=== PATIENT | female | born 1935 | race African-American/Black ===

== ENCOUNTER 2017-06-20 18:38 | Inpatient (IN) | payer OTHER, MEDICARE ==
[~2017-06-20] VITALS: Ht 157.5 cm; Wt 73.0 kg
[~2017-06-20 18:38] MED LIST: ASPI-1063 PO; ESCI10TA PO; GLIP10TA11 PO; LOSA1TAB15 PO; METO-442 PO; SIMV40TA2 PO; SITA1TAB10 PO
[2017-06-20 18:40] VITALS: BP_SYST 126
[2017-06-20] MEDS ORDERED: PRAV20TA PO (19:23)
[2017-06-20] MEDS ORDERED: CHOL200010 PO (19:23)
[2017-06-20] MEDS ORDERED: CYAN250014 PO (19:23)
[2017-06-20] MEDS ORDERED: BIMA2.5D5 OP (19:23)
[2017-06-20] MEDS ORDERED: LANS30CA56 PO (19:23)
[2017-06-20] MEDS ORDERED: AMLO5TAB4 PO (19:23)
[2017-06-20] MEDS ORDERED: ESOM2.5S PO (19:28)
[2017-06-20 19:38] LABS: EOSINOPHILS # (AUTO) 0.3 K/uL (0.0-0.4)
[2017-06-20 19:42] LABS: BASOPHILS # (AUTO) 0.2 K/uL (0.0-0.2); HEMOGLOBIN 11.3 g/dL (12.0-16.0); LYMPHOCYTES # (AUTO) 2.3 K/uL (1.0-5.5); MEAN CORPUSCULAR HEMOGLOBIN 29 pg (27-31); NEUTROPHILS # (AUTO) 4.8 K/uL (1.8-7.7)
[2017-06-20 19:46] LABS: ANION GAP 10 (5-15); BASOPHILS % (AUTO) 2.6 % (0.0-2.0); CALCIUM 9.2 mg/dL (8.4-11.0); CHLORIDE 104 mmol/L (98-107); CREATININE 1.54 mg/dL (0.55-1.30); EOSINOPHILS % (AUTO) 3.6 % (0.0-4.0); GLUCOSE 241 mg/dL (70-99); HEMATOCRIT 33.7 % (36-48); LYMPHOCYTES % (AUTO) 28.2 % (20.5-51.5); MEAN CORPUSCULAR HGB CONC 33 % (32-36); MEAN CORPUSCULAR VOLUME 87 fL (79.0-98.0); MONOCYTES # (AUTO) 0.4 K/uL (0.0-1.0); MONOCYTES % (AUTO) 5.1 % (1.7-9.3); NEUTROPHILS % (AUTO) 60.5 % (40.0-70.0); PLATELET COUNT (AUTO) 235 K/uL (130-430); POTASSIUM 4.6 mmol/L (3.5-5.1); RED BLOOD CELL COUNT(AUTO) 3.89 MIL/uL (4.2-6.2); RED CELL DISTRIBUTION WIDTH 14.7 % (9.0-15.0); SODIUM SERUM 139 mmol/L (136-145); UREA NITROGEN, BLOOD 26 mg/dL (8-21)
[2017-06-20 19:54] LABS: ALANINE AMINOTRANSFERASE 20 U/L (12-78); ALBUMIN 3.3 g/dL (3.4-4.8); ASPARTATE AMINOTRANSFERASE 25 U/L (10-37); TOTAL BILIRUBIN 0.3 mg/dL (0.0-1.0)
[2017-06-20 23:02] VITALS: BP_SYST 155
[2017-06-20] MEDS ORDERED: NORMAL SALINE 5 ML DISP.SYRIN IVF SCH (23:15)
[2017-06-20] MEDS ORDERED: MORPHINE 2 MG/ML INJ. SYRINGE IVP PRN (23:45)
[2017-06-20] MEDS ORDERED: ONDANSETRON HCL 4 MG/2 ML VIAL IVP PRN (23:45)
[2017-06-21] VITALS: BP_SYST 155
[2017-06-21] MEDS: NACL 0.9% 1,000 ML IV SCH ×2 (00:18→17:13)
[2017-06-21 00:52] LABS: BILIRUBIN,URINE NEGATIVE (NEGATIVE); BLOOD, URINE NEGATIVE (NEGATIVE); CLARITY/URINE CLEAR (CLEAR); COLOR,URINE YELLOW (YELLOW); GLUCOSE,URINE NEGATIVE (NEGATIVE); KETONES,URINE NEGATIVE (NEGATIVE); LEUKOCYTE ESTERASE ,URINE NEGATIVE (NEGATIVE); NITRITE, URINE NEGATIVE (NEGATIVE); PROTEIN URINE NEGATIVE (NEGATIVE); UROBILINOGEN,URINE 0.2 (0.2-1.0)
[2017-06-21 01:30] LABS: FREE T4 (FREE THYROXINE) 0.8 ng/dL (0.6-1.6); PHOSPHORUS 3.6 mg/dL (2.7-4.5); THYROID STIMULATING HORMONE 0.83 uIu/mL (0.34-4.82)
[2017-06-21 06:43] VITALS: BP_SYST 136
[2017-06-21 08:42] VITALS: BP_SYST 159
[2017-06-21] MEDS: DOCUSATE SODIUM 100 MG CAPSULE PO SCH ×2 (08:49→20:27)
[2017-06-21] MEDS: INSULIN REGULAR, HUMAN 100 UNITS/ML, 10 ML VIAL (novoLIN R) SUBCUT PRN ×2 (11:42→20:30)
[2017-06-21 12:36] VITALS: BP_SYST 162
[2017-06-21] MEDS ORDERED: hydrALAZINE HCL 20 MG/ML VIAL IVP PRN (13:00)
[2017-06-21 16:18] VITALS: BP_SYST 138
[2017-06-21] MEDS: ACETAMINOPHEN 325 MG TABLET PO PRN (17:06)
[2017-06-21] MEDS: SIMVASTATIN 10 MG TABLET PO SCH (18:31)
[2017-06-21 19:50] VITALS: BP_SYST 180
[2017-06-21] MEDS: LATANOPROST 2.5 ML DROPS (XALATAN) OP SCH (20:27)
[2017-06-21] MEDS: METOPROLOL TARTRATE 50 MG TABLET PO SCH (20:29)
[2017-06-21] MEDS ORDERED: MILK OF MAGNESIA 30 ML UDC PO PRN (21:00)
[2017-06-21] MEDS ORDERED: MILK OF MAGNESIA 30 ML UDC PO ONE (21:00)
[2017-06-21] MEDS ORDERED: SIMVASTATIN 20 MG TABLET PO SCH (21:00)
[2017-06-21] MEDS ORDERED: METOPROLOL TARTRATE 25 MG TABLET PO SCH (21:00)
[2017-06-22 00:53] VITALS: BP_SYST 148
[2017-06-22 03:58] VITALS: BP_SYST 144
[2017-06-22] MEDS: INSULIN REGULAR, HUMAN 100 UNITS/ML, 10 ML VIAL (novoLIN R) SUBCUT PRN ×4 (05:43→21:38)
[2017-06-22] MEDS: NACL 0.9% 1,000 ML IV SCH (05:45)
[2017-06-22 08:00] VITALS: BP_SYST 124
[2017-06-22] MEDS: METOPROLOL TARTRATE 50 MG TABLET PO SCH ×3 (09:00→21:36)
[2017-06-22] MEDS ORDERED: LOSARTAN/HYDROCHLOROTHIAZIDE TAB (HYZAAR 50-12.5 MG) PO SCH (09:00)
[2017-06-22] MEDS ORDERED: LISINOPRIL 10 MG TABLET (PRINIVIL) PO SCH (09:00)
[2017-06-22] MEDS: ASPIRIN 81 MG TAB.CHEW PO SCH (09:47)
[2017-06-22] MEDS: DOCUSATE SODIUM 100 MG CAPSULE PO SCH ×2 (09:47→21:35)
[2017-06-22] MEDS: LOSARTAN POTASSIUM 50 MG TABLET (COZAAR) PO SCH (09:48)
[2017-06-22] MEDS: HYDROCHLOROTHIAZIDE 25 MG TABLET (HCTZ) PO SCH (09:48)
[2017-06-22 10:17] LABS: T4 (THYROXINE) 7.9 ug/dL (4.5-12.0)
[2017-06-22 12:30] VITALS: BP_SYST 134
[2017-06-22 16:05] VITALS: BP_SYST 139
[2017-06-22] MEDS: SIMVASTATIN 10 MG TABLET PO SCH (17:32)
[2017-06-22 20:08] VITALS: BP_SYST 148
[2017-06-22] MEDS: ACETAMINOPHEN 325 MG TABLET PO PRN (20:17)
[2017-06-22] MEDS: LATANOPROST 2.5 ML DROPS (XALATAN) OP SCH (21:36)
[2017-06-23] MEDS: NACL 0.9% 1,000 ML IV SCH (00:24)
[2017-06-23 00:57] VITALS: BP_SYST 135
[2017-06-23 04:31] VITALS: BP_SYST 136
[2017-06-23] MEDS: INSULIN REGULAR, HUMAN 100 UNITS/ML, 10 ML VIAL (novoLIN R) SUBCUT PRN ×2 (06:04→12:17)
[2017-06-23 07:52] LABS: BASOPHILS % (AUTO) 0.5 % (0.0-2.0); EOSINOPHILS # (AUTO) 0.4 K/uL (0.0-0.4); EOSINOPHILS % (AUTO) 5.5 % (0.0-4.0); HEMATOCRIT 37.1 % (36-48); HEMOGLOBIN 12.2 g/dL (12.0-16.0); LYMPHOCYTES # (AUTO) 1.5 K/uL (1.0-5.5); LYMPHOCYTES % (AUTO) 21.4 % (20.5-51.5); MEAN CORPUSCULAR HEMOGLOBIN 29 pg (27-31); MEAN CORPUSCULAR HGB CONC 33 % (32-36); MEAN CORPUSCULAR VOLUME 87 fL (79.0-98.0); MONOCYTES # (AUTO) 0.6 K/uL (0.0-1.0); MONOCYTES % (AUTO) 8.4 % (1.7-9.3); NEUTROPHILS # (AUTO) 4.4 K/uL (1.8-7.7); NEUTROPHILS % (AUTO) 64.2 % (40.0-70.0); PLATELET COUNT (AUTO) 246 K/uL (130-430); RED BLOOD CELL COUNT(AUTO) 4.28 MIL/uL (4.2-6.2); RED CELL DISTRIBUTION WIDTH 14.6 % (9.0-15.0); WHITE BLOOD COUNT (AUTO) 6.9 K/uL (4.8-10.8)
[2017-06-23 08:04] LABS: ANION GAP 8 (5-15); CALCIUM 9.5 mg/dL (8.4-11.0); CHLORIDE 106 mmol/L (98-107); CREATININE 1.01 mg/dL (0.55-1.30); GLUCOSE 187 mg/dL (70-99); SODIUM SERUM 141 mmol/L (136-145); UREA NITROGEN, BLOOD 16 mg/dL (8-21)
[2017-06-23 08:05] VITALS: BP_SYST 148
[2017-06-23 08:11] LABS: ALANINE AMINOTRANSFERASE 26 U/L (12-78); ALBUMIN 3.2 g/dL (3.4-4.8); ASPARTATE AMINOTRANSFERASE 18 U/L (10-37); TOTAL BILIRUBIN 0.3 mg/dL (0.0-1.0)
[2017-06-23] MEDS ORDERED: METOPROLOL TARTRATE 50 MG TABLET PO SCH (09:00)
[2017-06-23] MEDS: HYDROCHLOROTHIAZIDE 25 MG TABLET (HCTZ) PO SCH (09:05)
[2017-06-23] MEDS: LOSARTAN POTASSIUM 50 MG TABLET (COZAAR) PO SCH (09:05)
[2017-06-23] MEDS: DOCUSATE SODIUM 100 MG CAPSULE PO SCH (09:07)
[2017-06-23] MEDS: ASPIRIN 81 MG TAB.CHEW PO SCH (09:07)
[2017-06-23] MEDS ORDERED: METO-442 PO (10:00)
[2017-06-23 10:30] VITALS: BP_SYST 148
[2017-06-23 12:56] VITALS: BP_SYST 140
[2017-06-24 15:27] LABS: HEMOGLOBIN A1C 7.8 % (4.8-5.6)
== END 2017-06-23 14:42 | disposition home or self-care (01) | DRG 392 ==
LOC: SED 18:38 → STU 22:43
PROVIDERS: ADMIT Family Medicine; ATTEND Family Medicine
DX: K21.9 Gastro-esophageal reflux disease without esophagitis (principal); E44.0 Moderate protein-calorie malnutrition; E11.9 Type 2 diabetes mellitus without complications; M62.81 Muscle weakness (generalized); R00.1 Bradycardia, unspecified; G90.9 Disorder of the autonomic nervous system, unspecified; I10 Essential (primary) hypertension; E78.5 Hyperlipidemia, unspecified; I51.7 Cardiomegaly; I95.1 Orthostatic hypotension; H40.9 Unspecified glaucoma; Z96.653 Presence of artificial knee joint, bilateral; M19.90 Unspecified osteoarthritis, unspecified site; Z79.899 Other long term (current) drug therapy; Z88.5 Allergy status to narcotic agent; Z98.42 Cataract extraction status, left eye; Z98.41 Cataract extraction status, right eye; Z79.82 Long term (current) use of aspirin; Z68.29 Body mass index [BMI] 29.0-29.9, adult
CPT/HCPCS: 36415; 70450-TC; 71010; 80053; 80061; 81003; 82150-TC; 82962; 83036; 83690-TC; 83735-TC; 83880; 84100-TC; 84436; 84439; 84443-TC; 84479; 84484; 85025; 93005; 93306; 99285; J1815; J7030

== ENCOUNTER 2017-09-19 09:42 | Day surgery (SDC) | payer OTHER, MEDICARE ==
[2017-09-17 14:29] LABS: ANION GAP 11 (5-15); BASOPHILS # (AUTO) 0.1 K/uL (0.0-0.2); BASOPHILS % (AUTO) 1.2 % (0.0-2.0); CALCIUM 10.3 mg/dL (8.4-11.0); CHLORIDE 101 mmol/L (98-107); CREATININE 1.15 mg/dL (0.55-1.30); EOSINOPHILS # (AUTO) 0.3 K/uL (0.0-0.4); GLUCOSE 173 mg/dL (70-99); HEMATOCRIT 40.3 % (36-48); HEMOGLOBIN 12.8 g/dL (12.0-16.0); LYMPHOCYTES # (AUTO) 2.4 K/uL (1.0-5.5); LYMPHOCYTES % (AUTO) 34.1 % (20.5-51.5); MEAN CORPUSCULAR HEMOGLOBIN 28 pg (27-31); MEAN CORPUSCULAR HGB CONC 32 % (32-36); MEAN CORPUSCULAR VOLUME 87 fL (79.0-98.0); MONOCYTES # (AUTO) 0.4 K/uL (0.0-1.0); MONOCYTES % (AUTO) 5.5 % (1.7-9.3); NEUTROPHILS % (AUTO) 55.2 % (40.0-70.0); PLATELET COUNT (AUTO) 334 K/uL (130-430); POTASSIUM 4.7 mmol/L (3.5-5.1); RED BLOOD CELL COUNT(AUTO) 4.66 MIL/uL (4.2-6.2); RED CELL DISTRIBUTION WIDTH 14.8 % (9.0-15.0); SODIUM SERUM 139 mmol/L (136-145); UREA NITROGEN, BLOOD 17 mg/dL (8-21); WHITE BLOOD COUNT (AUTO) 7.2 K/uL (4.8-10.8)
[~2017-09-19] VITALS: Ht 157.5 cm; Wt 70.8 kg
[~2017-09-19 09:42] MED LIST changes: +AMLO5TAB4 PO; +BIMA2.5D5 OP; +CHOL200010 PO; +CYAN250014 PO; -ESCI10TA PO; +ESOM2.5S PO; +PRAV20TA PO; -SIMV40TA2 PO
[2017-09-19] MEDS ORDERED: CEFAZOLIN 2 GM IVPB PREMIX 50 ML IV ONE (09:53)
[2017-09-19 10:05] LABS: BILIRUBIN,URINE NEGATIVE (NEGATIVE); BLOOD, URINE NEGATIVE (NEGATIVE); CLARITY/URINE CLEAR (CLEAR); COLOR,URINE YELLOW (YELLOW); GLUCOSE,URINE NEGATIVE (NEGATIVE); KETONES,URINE NEGATIVE (NEGATIVE); LEUKOCYTE ESTERASE ,URINE NEGATIVE (NEGATIVE); NITRITE, URINE NEGATIVE (NEGATIVE); PROTEIN URINE NEGATIVE (NEGATIVE); UROBILINOGEN,URINE 0.2 (0.2-1.0)
[2017-09-19] MEDS ORDERED: SEVOFLURANE 15 MIN GAS INH ONE (11:50)
[2017-09-19] MEDS ORDERED: KETOROLAC TROMETHAMINE 30 MG VIAL IVP ONE (11:50)
[2017-09-19] MEDS ORDERED: LIDOCAINE 1% 10 MG/ML, 20 ML MDV INJ ONE (11:50)
[2017-09-19] MEDS ORDERED: DEXAMETHASONE SOD PHOSPHATE 4 MG/ML VIAL IVP ONE (11:50)
[2017-09-19] MEDS ORDERED: ONDANSETRON HCL 4 MG/2 ML VIAL IVP ONE ×2 (11:50→12:45)
[2017-09-19] MEDS ORDERED: fentaNYL CITRATE/PF 100 MCG/2 ML AMP IVP ONE (11:50)
[2017-09-19] MEDS ORDERED: PROPOFOL 200MG/ 20ML VIAL (DIPRIVAN) IV ONE (11:50)
[2017-09-19] MEDS ORDERED: LR 1,000 ML IV.SOLN IV ONE (11:50)
[2017-09-19] MEDS ORDERED: MIDAZOLAM HCL 5 MG/5 ML VIAL IVP ONE (11:50)
[2017-09-19] MEDS ORDERED: LR 1,000 ML IV SCH (12:31)
[2017-09-19] MEDS ORDERED: traMADol HCL HCL 50 MG TABLET (ULTRAM) PO PRN (12:45)
[2017-09-19] MEDS ORDERED: NALOXONE HCL 0.4 MG/ML AMP (NARCAN) IVP ONE (12:45)
[2017-09-19] MEDS ORDERED: LABETALOL 100 MG/ 20ML VIAL IVP PRN (12:45)
[2017-09-19] MEDS ORDERED: fentaNYL CITRATE/PF 100 MCG/2 ML AMP IVP PRN (12:45)
[2017-09-19] MEDS ORDERED: KETOROLAC TROMETHAMINE 30 MG VIAL IM PRN (12:45)
[2017-09-19] MEDS ORDERED: ACETAMINOPHEN 325 MG TABLET PO ONE (12:45)
[2017-09-19] MEDS ORDERED: MIDAZOLAM HCL 5 MG/5 ML VIAL IVP PRN (12:45)
[2017-09-19] MEDS ORDERED: HYDROmorphone 1 MG INJ. 1 MG/ML AMPUL IVP PRN (12:45)
[2017-09-19] MEDS ORDERED: traMADol HCL HCL 50 MG TABLET (ULTRAM) ONE (13:20)
[2017-09-19 13:28] VITALS: BP_SYST 140
== END 2017-09-19 15:40 | disposition home or self-care (01) ==
LOC: SDS 09:42 → SMU 09:44 → SDS 15:40
PROVIDERS: ATTEND Orthopaedic Surgery
DX: S60.211A Contusion of right wrist, initial encounter (principal); V49.9XXA Car occupant (driver) (passenger) injured in unspecified traffic accident, initial encounter; Y93.9 Activity, unspecified; Y92.89 Other specified places as the place of occurrence of the external cause; Y99.9 Unspecified external cause status; I10 Essential (primary) hypertension; J45.909 Unspecified asthma, uncomplicated; K21.9 Gastro-esophageal reflux disease without esophagitis; F32.9 Major depressive disorder, single episode, unspecified; E11.9 Type 2 diabetes mellitus without complications; H40.9 Unspecified glaucoma; Z79.899 Other long term (current) drug therapy; Z98.890 Other specified postprocedural states; Z90.710 Acquired absence of both cervix and uterus; Z96.653 Presence of artificial knee joint, bilateral; Z82.49 Family history of ischemic heart disease and other diseases of the circulatory system; E78.5 Hyperlipidemia, unspecified; M19.90 Unspecified osteoarthritis, unspecified site; M81.0 Age-related osteoporosis without current pathological fracture
CPT/HCPCS: 25028; 36415; 71046; 80048; 81003; 82962; 85025; J0690; J1100; J1885; J2001; J2250; J2405; J2704; J3010; J7120

== ENCOUNTER 2017-09-20 10:24 | Emergency (ER) | payer OTHER, MEDICARE ==
[~2017-09-20] VITALS: Ht 157.5 cm; Wt 70.3 kg
[2017-09-20 10:36] VITALS: BP_SYST 169
[2017-09-20 11:38] LABS: BILIRUBIN,URINE NEGATIVE (NEGATIVE); BLOOD, URINE NEGATIVE (NEGATIVE); CLARITY/URINE CLEAR (CLEAR); COLOR,URINE YELLOW (YELLOW); GLUCOSE,URINE NEGATIVE (NEGATIVE); KETONES,URINE NEGATIVE (NEGATIVE); LEUKOCYTE ESTERASE ,URINE NEGATIVE (NEGATIVE); NITRITE, URINE NEGATIVE (NEGATIVE); PROTEIN URINE TRACE (NEGATIVE); UROBILINOGEN,URINE 0.2 (0.2-1.0)
[2017-09-20 11:42] LABS: HEMATOCRIT 42.2 % (36-48); HEMOGLOBIN 13.3 g/dL (12.0-16.0); MEAN CORPUSCULAR HEMOGLOBIN 27 pg (27-31); MEAN CORPUSCULAR HGB CONC 32 % (32-36); MEAN CORPUSCULAR VOLUME 86 fL (79.0-98.0); PLATELET COUNT (AUTO) 272 K/uL (130-430); RED BLOOD CELL COUNT(AUTO) 4.89 MIL/uL (4.2-6.2); RED CELL DISTRIBUTION WIDTH 14.8 % (9.0-15.0); WHITE BLOOD COUNT (AUTO) 11.9 K/uL (4.8-10.8)
[2017-09-20 11:45] LABS: RBC,URINE 0-3 /HPF (0-3)
[2017-09-20 11:46] LABS: BACTERIA,URINE RARE /HPF (None Seen); WBC,URINE 0-3 /HPF (0-3)
[2017-09-20 11:56] LABS: ANION GAP 12 (5-15); CALCIUM 10.9 mg/dL (8.4-11.0); CHLORIDE 97 mmol/L (98-107); CREATININE 1.04 mg/dL (0.55-1.30); GLUCOSE 231 mg/dL (70-99); POTASSIUM 4.7 mmol/L (3.5-5.1); SODIUM SERUM 135 mmol/L (136-145); UREA NITROGEN, BLOOD 22 mg/dL (8-21)
[2017-09-20 12:01] LABS: ALANINE AMINOTRANSFERASE 31 U/L (12-78); ALBUMIN 4.5 g/dL (3.4-4.8); ASPARTATE AMINOTRANSFERASE 28 U/L (10-37); TOTAL BILIRUBIN 0.3 mg/dL (0.0-1.0)
[2017-09-20 13:00] LABS: BAND % (MANUAL) 1 % (0-6); BASOPHILS % (MANUAL) 0 % (0-2); EOSINOPHILS % (MANUAL) 1 % (0-7); LYMPHOCYTES % (MANUAL) 15 % (20-46); MONOCYTES % (MANUAL) 5 % (0-11)
[2017-09-20 13:38] VITALS: BP_SYST 138
== END 2017-09-20 13:38 | disposition home or self-care (01) ==
LOC: SED 10:24
DX: E86.0 Dehydration (principal); J45.909 Unspecified asthma, uncomplicated; E11.9 Type 2 diabetes mellitus without complications; K21.9 Gastro-esophageal reflux disease without esophagitis; I10 Essential (primary) hypertension; Z90.710 Acquired absence of both cervix and uterus; Z88.5 Allergy status to narcotic agent; Z79.899 Other long term (current) drug therapy
CPT/HCPCS: 36415; 80053; 81000-TC; 84484; 85007; 85027; 93005; 99285

== ENCOUNTER 2018-07-17 08:10 | Outpatient (CLI) | payer OTHER, MEDICARE ==
[~2018-07-17 08:10] MED LIST changes: -ASPI-1063 PO; +ASPI-1154 PO; -CHOL200010 PO; +CHOL20004 PO
[2018-07-17 09:36] LABS: ALANINE AMINOTRANSFERASE 23 U/L (12-78); ALBUMIN 3.4 g/dL (3.4-4.8); ANION GAP 8 (5-15); ASPARTATE AMINOTRANSFERASE 14 U/L (10-37); CALCIUM 9.7 mg/dL (8.4-11.0); CHLORIDE 102 mmol/L (98-107); CHOLESTEROL 141 mg/dL (<200); GLUCOSE 226 mg/dL (70-99); HDL CHOLESTEROL 49 mg/dL (>55); LDL CHOLESTEROL 73 mg/dL (<100); SODIUM SERUM 137 mmol/L (136-145); TOTAL BILIRUBIN 0.3 mg/dL (0.0-1.0); TRIGLYCERIDES 113 mg/dL (30-150); UREA NITROGEN, BLOOD 22 mg/dL (8-21)
[2018-07-17 09:38] LABS: RED BLOOD CELL COUNT(AUTO) 4.39 MIL/uL (4.2-6.2); WHITE BLOOD COUNT (AUTO) 5.6 K/uL (4.8-10.8)
[2018-07-17 09:39] LABS: BASOPHILS % (AUTO) 0.6 % (0.0-2.0); EOSINOPHILS % (AUTO) 5.5 % (0.0-4.0); HEMATOCRIT 37.1 % (36-48); HEMOGLOBIN 12.1 g/dL (12.0-16.0); LYMPHOCYTES % (AUTO) 35.9 % (20.5-51.5); MEAN CORPUSCULAR HEMOGLOBIN 28 pg (27-31); MEAN CORPUSCULAR HGB CONC 33 % (32-36); MEAN CORPUSCULAR VOLUME 85 fL (79.0-98.0); MONOCYTES # (AUTO) 0.3 K/uL (0.0-1.0); MONOCYTES % (AUTO) 6.2 % (1.7-9.3); NEUTROPHILS % (AUTO) 51.8 % (40.0-70.0); PLATELET COUNT (AUTO) 258 K/uL (130-430); RED CELL DISTRIBUTION WIDTH 14.6 % (9.0-15.0)
[2018-07-17 09:40] LABS: EOSINOPHILS # (AUTO) 0.3 K/uL (0.0-0.4)
[2018-07-20 15:40] LABS: HEMOGLOBIN A1C 8.3 % (4.8-5.6)
== END 2018-07-17 18:55 | disposition home or self-care (01) ==
LOC: SLB 08:10
PROVIDERS: ATTEND Specialist
DX: E11.22 Type 2 diabetes mellitus with diabetic chronic kidney disease (principal); I12.9 Hypertensive chronic kidney disease with stage 1 through stage 4 chronic kidney disease, or unspecified chronic kidney disease; N18.3 Chronic kidney disease, stage 3 (moderate); E78.2 Mixed hyperlipidemia; E55.9 Vitamin D deficiency, unspecified; E53.8 Deficiency of other specified B group vitamins
CPT/HCPCS: 36415; 80053; 80061; 82306; 82607; 83036; 85025

== ENCOUNTER 2022-12-30 14:00 | Inpatient (IN) | payer OTHER, MEDICARE ==
[~2022-12-30] VITALS: Ht 160 cm; Wt 29.9 kg
[~2022-12-30 14:00] MED LIST changes: -ASPI-1154 PO; +ASPI-1457 PO
[2022-12-30 14:23] VITALS: BP_SYST 145
[2022-12-30 15:23] LABS: BASOPHILS # (AUTO) 0.1 K/uL (0.0-0.2); BASOPHILS % (AUTO) 1.5 % (0.0-2.0); EOSINOPHILS # (AUTO) 0.2 K/uL (0.0-0.4); EOSINOPHILS % (AUTO) 3.8 % (0.0-4.0); HEMATOCRIT 36.5 % (36-48); LYMPHOCYTES # (AUTO) 1.8 K/uL (1.0-5.5); LYMPHOCYTES % (AUTO) 30.8 % (20.5-51.5); MEAN CORPUSCULAR HEMOGLOBIN 29 pg (27-31); MEAN CORPUSCULAR HGB CONC 33 % (32-36); MEAN CORPUSCULAR VOLUME 89 fL (79.0-98.0); MONOCYTES # (AUTO) 0.6 K/uL (0.0-1.0); MONOCYTES % (AUTO) 9.8 % (1.7-9.3); NEUTROPHILS # (AUTO) 3.2 K/uL (1.8-7.7); NEUTROPHILS % (AUTO) 54.1 % (40.0-70.0); PLATELET COUNT (AUTO) 202 K/uL (130-430); RED BLOOD CELL COUNT(AUTO) 4.12 MIL/uL (4.2-6.2); RED CELL DISTRIBUTION WIDTH 15.8 % (9.0-15.0); WHITE BLOOD COUNT (AUTO) 5.9 K/uL (4.8-10.8)
[2022-12-30 15:37] LABS: INR 1.2 (0.8-1.2); PROTHROMBIN TIME 12.2 SECS (9.5-12.5)
[2022-12-30 15:38] LABS: ALANINE AMINOTRANSFERASE 23 U/L (12-78); ALBUMIN 3.5 g/dL (3.4-4.8); ANION GAP 12 (5-15); ASPARTATE AMINOTRANSFERASE 24 U/L (10-37); CALCIUM 8.8 mg/dL (8.4-11.0); CHLORIDE 98 mmol/L (98-107); CREATININE 1.62 mg/dL (0.55-1.30); GLUCOSE 314 mg/dL (70-99); TOTAL BILIRUBIN 0.4 mg/dL (0.0-1.0); UREA NITROGEN, BLOOD 25 mg/dL (8-21)
[2022-12-30] MEDS: NACL 0.9% 1,000 ML IV SCH (17:30)
[2022-12-30] MEDS ORDERED: ONDANSETRON HCL 4 MG/2 ML VIAL IVP PRN (18:00)
[2022-12-30] MEDS ORDERED: DEXTROSE 50% JECT 50 ML DISP.SYRIN IVP PRN (18:00)
[2022-12-30] MEDS ORDERED: PRAVASTATIN SODIUM 20 MG TABLET (PRAVACHOL) PO SCH (18:00)
[2022-12-30] MEDS ORDERED: POTASSIUM CHLORIDE 20 MEQ TAB.PRT.SR PO PRN (18:00)
[2022-12-30] MEDS ORDERED: LORazepam 2 MG/ML VIAL IVP PRN (18:00)
[2022-12-30] MEDS ORDERED: MAGNESIUM SULFATE 50 ML IV PRN (18:00)
[2022-12-30] MEDS ORDERED: MUPIROCIN 2% TOPICAL OINTMENT 22 GM NS PRN (18:00)
[2022-12-30] MEDS ORDERED: ZOLPIDEM TARTRATE 5 MG TABLET PO PRN (18:00)
[2022-12-30] MEDS ORDERED: DOCUSATE SODIUM 100 MG CAPSULE PO PRN (18:00)
[2022-12-30] MEDS ORDERED: VALS320T2 PO (19:52)
[2022-12-30] MEDS ORDERED: HYDR25TA4 PO (19:53)
[2022-12-30] MEDS ORDERED: DOXA8TAB2 PO (19:54)
[2022-12-30] MEDS ORDERED: CLOB50SO2 TP (19:56)
[2022-12-30] MEDS ORDERED: FAMO40TA7 PO (19:56)
[2022-12-30 19:58] LABS: BILIRUBIN,URINE NEGATIVE (NEGATIVE); BLOOD, URINE NEGATIVE (NEGATIVE); CLARITY/URINE CLEAR (CLEAR); COLOR,URINE YELLOW (YELLOW); GLUCOSE,URINE NEGATIVE (NEGATIVE); KETONES,URINE NEGATIVE (NEGATIVE); LEUKOCYTE ESTERASE ,URINE NEGATIVE (NEGATIVE); NITRITE, URINE NEGATIVE (NEGATIVE); PH,URINE 6.5 (5.0-8.0); PROTEIN URINE NEGATIVE (NEGATIVE); UROBILINOGEN,URINE 0.2 (0.2-1.0)
[2022-12-30] MEDS ORDERED: ESTRADIOL VAG CREAM TP (20:01)
[2022-12-30] MEDS ORDERED: MIRA50TA PO (20:02)
[2022-12-30] MEDS ORDERED: XALEYE OP (20:05)
[2022-12-30] MEDS ORDERED: OLOP2.5D16 OP (20:10)
[2022-12-30] MEDS ORDERED: ALPHAGAN1 OP (20:10)
[2022-12-30] MEDS ORDERED: [UNRECOGNIZED DRUG - CODE] PO (20:13)
[2022-12-30] MEDS ORDERED: FOLI400T4 PO (20:15)
[2022-12-30] MEDS ORDERED: BIMATOPROST 0.01%, 2.5 ML EYE DROPS OP SCH (21:00)
[2022-12-30] MEDS: HEPARIN SODIUM,PORCINE 5,000 UNITS/ML VIAL SUBCUT SCH (23:45)
[2022-12-31] MEDS: ACETAMINOPHEN 325 MG TABLET PO PRN ×2 (01:32→15:54)
[2022-12-31] MEDS ORDERED: cloNIDine HCL 0.1 MG TABLET PO ONE (02:00)
[2022-12-31 03:32] VITALS: BP_SYST 146
[2022-12-31 05:12] LABS: BASOPHILS # (AUTO) 0.1 K/uL (0.0-0.2); BASOPHILS % (AUTO) 1.1 % (0.0-2.0); EOSINOPHILS # (AUTO) 0.3 K/uL (0.0-0.4); EOSINOPHILS % (AUTO) 3.7 % (0.0-4.0); HEMATOCRIT 38.7 % (36-48); HEMOGLOBIN 12.6 g/dL (12.0-16.0); LYMPHOCYTES # (AUTO) 2.6 K/uL (1.0-5.5); LYMPHOCYTES % (AUTO) 38.2 % (20.5-51.5); MEAN CORPUSCULAR HEMOGLOBIN 29 pg (27-31); MEAN CORPUSCULAR HGB CONC 33 % (32-36); MEAN CORPUSCULAR VOLUME 88 fL (79.0-98.0); MONOCYTES # (AUTO) 0.5 K/uL (0.0-1.0); MONOCYTES % (AUTO) 6.9 % (1.7-9.3); NEUTROPHILS # (AUTO) 3.4 K/uL (1.8-7.7); NEUTROPHILS % (AUTO) 50.1 % (40.0-70.0); PLATELET COUNT (AUTO) 232 K/uL (130-430); RED CELL DISTRIBUTION WIDTH 15.6 % (9.0-15.0); WHITE BLOOD COUNT (AUTO) 6.7 K/uL (4.8-10.8)
[2022-12-31] MEDS: NACL 0.9% 1,000 ML IV SCH ×2 (05:24→18:09)
[2022-12-31 05:34] LABS: ANION GAP 11 (5-15); CHLORIDE 104 mmol/L (98-107); CREATININE 1.34 mg/dL (0.55-1.30); GLUCOSE 187 mg/dL (70-99); UREA NITROGEN, BLOOD 20 mg/dL (8-21)
[2022-12-31] MEDS: INSULIN LISPRO SLIDING SCALE 100 UNITS/ML, 3 ML VIAL (humaLOG) SUBCUT PRN (05:50)
[2022-12-31 08:10] VITALS: BP_SYST 146
[2022-12-31] MEDS ORDERED: amLODIPine BESYLATE 5 MG TABLET PO SCH ×2 (09:00)
[2022-12-31] MEDS ORDERED: LOSARTAN POTASSIUM 50 MG TABLET (COZAAR) PO SCH (09:00)
[2022-12-31] MEDS ORDERED: HYDROCHLOROTHIAZIDE 12.5 MG CAPSULE (HCTZ) PO SCH (09:00)
[2022-12-31] MEDS ORDERED: LOSARTAN/HYDROCHLOROTHIAZIDE TAB (HYZAAR 50-12.5 MG) PO SCH (09:00)
[2022-12-31] MEDS: ASPIRIN 81 MG TABLET(ECOTRIN) PO SCH (09:43)
[2022-12-31] MEDS: HEPARIN SODIUM,PORCINE 5,000 UNITS/ML VIAL SUBCUT SCH ×2 (09:58→21:13)
[2022-12-31 12:32] VITALS: BP_SYST 162
[2022-12-31 16:42] VITALS: BP_SYST 158
[2022-12-31 20:00] VITALS: BP_SYST 181
[2022-12-31] MEDS ORDERED: ATORVASTATIN 10 MG TABLET PO SCH (21:00)
[2022-12-31] MEDS ORDERED: LATANOPROST 2.5 ML DROPS (XALATAN) OP SCH (21:00)
[2022-12-31] MEDS ORDERED: hydrALAZINE HCL 20 MG/ML VIAL IVP ONE (21:30)
[2023-01-01] VITALS (10 sets, daily range): BP systolic 146–204
[2023-01-01 05:08] LABS: BASOPHILS # (AUTO) 0.1 K/uL (0.0-0.2); BASOPHILS % (AUTO) 1.6 % (0.0-2.0); EOSINOPHILS # (AUTO) 0.3 K/uL (0.0-0.4); EOSINOPHILS % (AUTO) 4.4 % (0.0-4.0); HEMATOCRIT 35.6 % (36-48); HEMOGLOBIN 11.6 g/dL (12.0-16.0); LYMPHOCYTES # (AUTO) 2.5 K/uL (1.0-5.5); LYMPHOCYTES % (AUTO) 43.2 % (20.5-51.5); MEAN CORPUSCULAR HEMOGLOBIN 29 pg (27-31); MEAN CORPUSCULAR HGB CONC 33 % (32-36); MEAN CORPUSCULAR VOLUME 87 fL (79.0-98.0); MONOCYTES # (AUTO) 0.5 K/uL (0.0-1.0); MONOCYTES % (AUTO) 8.5 % (1.7-9.3); NEUTROPHILS # (AUTO) 2.5 K/uL (1.8-7.7); NEUTROPHILS % (AUTO) 42.3 % (40.0-70.0); PLATELET COUNT (AUTO) 200 K/uL (130-430); RED BLOOD CELL COUNT(AUTO) 4.08 MIL/uL (4.2-6.2); RED CELL DISTRIBUTION WIDTH 15.5 % (9.0-15.0); WHITE BLOOD COUNT (AUTO) 5.8 K/uL (4.8-10.8)
[2023-01-01 05:43] LABS: ALANINE AMINOTRANSFERASE 21 U/L (12-78); ANION GAP 10 (5-15); ASPARTATE AMINOTRANSFERASE 19 U/L (10-37); CALCIUM 8.3 mg/dL (8.4-11.0); CHLORIDE 107 mmol/L (98-107); CREATININE 1.03 mg/dL (0.55-1.30); GLUCOSE 151 mg/dL (70-99); TOTAL BILIRUBIN 0.3 mg/dL (0.0-1.0); UREA NITROGEN, BLOOD 18 mg/dL (8-21)
[2023-01-01] MEDS: NACL 0.9% 1,000 ML IV SCH (06:38)
[2023-01-01] MEDS ORDERED: LOSA1TAB15 PO ×2 (08:30)
[2023-01-01] MEDS ORDERED: cloNIDine HCL 0.1 MG TABLET PO PRN (08:30)
[2023-01-01] MEDS: ASPIRIN 81 MG TABLET(ECOTRIN) PO SCH (08:31)
[2023-01-01] MEDS ORDERED: LOSA100T4 PO (08:33)
[2023-01-01] MEDS ORDERED: HYDR50TA4 PO (08:33)
[2023-01-01] MEDS ORDERED: DOXA4TAB2 PO (08:35)
[2023-01-01] MEDS ORDERED: HYDROCHLOROTHIAZIDE 25 MG TABLET (HCTZ) PO SCH (09:00)
[2023-01-01] MEDS ORDERED: amLODIPine BESYLATE 5 MG TABLET PO SCH (09:00)
[2023-01-01] MEDS: INSULIN LISPRO SLIDING SCALE 100 UNITS/ML, 3 ML VIAL (humaLOG) SUBCUT PRN (12:19)
[2023-01-01] MEDS ORDERED: LOSARTAN POTASSIUM 50 MG TABLET (COZAAR) PO ONE (13:00)
[2023-01-01] MEDS: ACETAMINOPHEN 325 MG TABLET PO PRN (13:11)
[2023-01-01] MEDS ORDERED: cloNIDine HCL 0.2 MG TABLET PO ONE (18:30)
[2023-01-01] MEDS ORDERED: DOXAZOSIN MESYLATE 2 MG TABLET PO SCH (21:00)
[2023-01-02] MEDS ORDERED: LOSARTAN POTASSIUM 50 MG TABLET (COZAAR) PO SCH (09:00)
== END 2023-01-01 21:32 | disposition home or self-care (01) | DRG 308 ==
LOC: SED 14:00 → STU 17:05
PROVIDERS: ADMIT General Practice; ATTEND General Practice
PROC: 4A10X4Z Monitoring of Central Nervous Electrical Activity, External Approach (ICD-10-PCS; principal; 2023-01-01)
DX: R00.1 Bradycardia, unspecified (principal); N17.0 Acute kidney failure with tubular necrosis; E87.20 Acidosis, unspecified; I10 Essential (primary) hypertension; E78.5 Hyperlipidemia, unspecified; E11.42 Type 2 diabetes mellitus with diabetic polyneuropathy; E11.22 Type 2 diabetes mellitus with diabetic chronic kidney disease; I35.0 Nonrheumatic aortic (valve) stenosis; I12.9 Hypertensive chronic kidney disease with stage 1 through stage 4 chronic kidney disease, or unspecified chronic kidney disease; N18.30 Chronic kidney disease, stage 3 unspecified; Z96.653 Presence of artificial knee joint, bilateral; Z88.5 Allergy status to narcotic agent; Z88.8 Allergy status to other drugs, medicaments and biological substances
CPT/HCPCS: 36415; 70450-TC; 71045; 76376; 80048; 80053; 81003; 82550; 82962; 83037; 83605; 83735; 83880; 84484; 85025; 85610-TC; 85730-TC; 93005; 93306; 93880; 95816; 99285; G0378; J0360; J1644; J7030

== ENCOUNTER 2024-04-20 14:31 | Emergency (ER) | payer BC, MEDICARE, OTHER ==
[~2024-04-20] VITALS: Ht 157.5 cm; Wt 66.2 kg
[~2024-04-20 14:31] MED LIST changes: +ALPHAGAN1 OP; +CLOB50SO2 TP; +DOXA-7 PO; +DOXA-8 PO; +ESTRADIOL VAG CREAM TP; +FAMO40TA7 PO; +FOLI400T4 PO; +HYDR50TA4 PO; +LOSA-415 PO; -LOSA1TAB15 PO; -METO-442 PO; +MIRA50TA PO; +OLOP2.5D16 OP; +XALEYE OP; +[UNRECOGNIZED DRUG - CODE] PO
[2024-04-20 14:41] VITALS: BP_SYST 165; PULSE 63; RESP 18; TEMP 98.6; O2SAT 99
[2024-04-20 15:24] LABS: BASOPHILS # (AUTO) 0.1 K/uL (0.0-0.2); BASOPHILS % (AUTO) 1.2 % (0.0-2.0); EOSINOPHILS # (AUTO) 0.2 K/uL (0.0-0.4); EOSINOPHILS % (AUTO) 2.5 % (0.0-4.0); HEMATOCRIT 35.9 % (36-48); LYMPHOCYTES # (AUTO) 2.1 K/uL (1.0-5.5); LYMPHOCYTES % (AUTO) 33.4 % (20.5-51.5); MEAN CORPUSCULAR HEMOGLOBIN 29 pg (27-31); MEAN CORPUSCULAR HGB CONC 33 % (32-36); MEAN CORPUSCULAR VOLUME 87 fL (79.0-98.0); MONOCYTES # (AUTO) 0.7 K/uL (0.0-1.0); MONOCYTES % (AUTO) 10.4 % (1.7-9.3); NEUTROPHILS # (AUTO) 3.3 K/uL (1.8-7.7); NEUTROPHILS % (AUTO) 52.5 % (40.0-70.0); PLATELET COUNT (AUTO) 236 K/uL (130-430); RED BLOOD CELL COUNT(AUTO) 4.15 MIL/uL (4.2-6.2); RED CELL DISTRIBUTION WIDTH 15.3 % (9.0-15.0); WHITE BLOOD COUNT (AUTO) 6.3 K/uL (4.8-10.8)
[2024-04-20 15:38] LABS: ALANINE AMINOTRANSFERASE 26 U/L (12-78); ALBUMIN 3.3 g/dL (3.4-4.8); ANION GAP 12 (5-15); ASPARTATE AMINOTRANSFERASE 22 U/L (10-37); BILIRUBIN,DIRECT 0.1 mg/dL (0.0-0.3); CALCIUM 9.3 mg/dL (8.4-11.0); CARBON DIOXIDE 25 mmol/L (23-29); CHLORIDE 102 mmol/L (98-107); CREATININE 1.97 mg/dL (0.55-1.30); GLUCOSE 325 mg/dL (74-106); POTASSIUM 4.5 mmol/L (3.5-5.1); SODIUM SERUM 139 mmol/L (136-145); TOTAL BILIRUBIN 0.4 mg/dL (0.0-1.0); TOTAL PROTEIN, SERUM 7.2 g/dL (6.4-8.3); UREA NITROGEN, BLOOD 26 mg/dL (8-21)
[2024-04-20] MEDS: INSULIN REGULAR, HUMAN 10 UNITS/0.1 ML, 3 ML VIAL IVP ONE (15:42)
[2024-04-20] MEDS: NS 500 ML IV ONE (15:46)
[2024-04-20] MEDS ORDERED: METF-381 PO (17:15)
[2024-04-20 17:40] VITALS: BP_SYST 156; PULSE 66; RESP 18; TEMP 98.6; O2SAT 99
== END 2024-04-20 17:42 | disposition home or self-care (01) ==
LOC: SED 14:31
DX: E11.65 Type 2 diabetes mellitus with hyperglycemia (principal); N17.8 Other acute kidney failure; J45.909 Unspecified asthma, uncomplicated; I10 Essential (primary) hypertension; Z90.710 Acquired absence of both cervix and uterus; Z98.890 Other specified postprocedural states; Z88.5 Allergy status to narcotic agent; Z88.6 Allergy status to analgesic agent; Z79.899 Other long term (current) drug therapy; Z79.2 Long term (current) use of antibiotics
CPT/HCPCS: 99283; 80076; 80048; 85025; 36415; 82948; J1815